=== PATIENT | male | born 1955 | race Caucasian/White ===

== ENCOUNTER → 2017-01-13 | Outpatient (CLI) | payer BC ==
--- NOTE | 2017-01-13 11:00 | DIAGNOSTIC IMAGING REPORT ---
ABDOMINAL ULTRASOUND COMPLETE HISTORY: Left upper quadrant abdominal pain.. COMPARISON: None. FINDINGS: Pancreas: The pancreas demonstrates a normal echotexture. Liver: Unremarkable. Gallbladder: Multiple gallstones. No gallbladder wall thickening. CBD: 5 mm. Kidneys: No hydronephrosis. Spleen: Normal in size. Aorta: Normal in caliber. Miscellaneous: No sonographic abnormality within the left lower quadrant. No hernia identified. IMPRESSION: 1. Cholelithiasis. 2. No sonographic abnormality within the left lower quadrant. No hernia identified. Electronically signed by: Diego Fuentes M.D. 01/13/2017 10:59 AM Dictated Date/Time: 01/13/2017 10:52 AM
== END | disposition home or self-care (01) ==
LOC: C.ULTRBC 09:41
PROVIDERS: ATTEND Internal Medicine
DX: R10.12 Left upper quadrant pain (principal); R10.32 Left lower quadrant pain; R10.2 Pelvic and perineal pain; K80.20 Calculus of gallbladder without cholecystitis without obstruction